=== PATIENT | male | born 1975 | race Caucasian/White ===

== ENCOUNTER 2018-03-29 15:50 | Emergency (ER) | payer OTHER ==
[2018-03-29 16:00] VITALS: BP 137/83
[2018-03-29] MEDS ORDERED: Sodium Chloride 0.9% 10 ML Syringe FLUSH PRN (16:24)
--- NOTE | 2018-03-29 16:57 | CT ---
Head CT Technique: Multiple axial sections through the brain were obtained. Intravenous contrast was not utilized. Comparison: No prior intracranial imaging. Findings: Ventricles along with basal cisterns and sulci over the convexities are within normal limits for the patient's age. No abnormal parenchymal densities are seen. No evidence of intracranial hemorrhage. No midline shift or mass effect is seen. Bone window settings were reviewed which shows minimal area of mucosal thickening within the left ethmoid sinus which is incidental. Other visualized sinuses are clear. No acute calvarial abnormality is appreciated. Impression: 1. Minimal sinus finding which is incidental. No acute intracranial abnormality is identified on noncontrast head CT exam. Diagnostic code #2 4
--- NOTE | 2018-03-29 17:26 | EDM.PDOC ---
ED HPI GENERAL MEDICAL PROBLEM - General Chief Complaint: General Stated Complaint: [facility] Time Seen by Provider: 03/29/18 16:04 Source of Information: Reports: Patient, EMS History Limitations: Reports: No Limitations - History of Present Illness INITIAL COMMENTS - FREE TEXT/NARRATIVE: The patient presents by [facility] for shortness of breath, diaphoresis , tingling in both arms and a headache. 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 He was at a well sight near [facility]. He was doing some maintenance and got sweaty more then normal and was winded. He started driving to another well sight and started having tingling in his arms. He also felt lightheaded at that time. He had to drive awhile to get cell service and then he called his boss and 911. [facility] brought him in. He feels much better now. He just has some tingling in both hands. He has a chronic headache. He denies having any chest pain, nausea, vomiting or abdominal pain. He has no history of PE or DVT. He has no edema or pain in his legs. Onset: Gradual Duration: Hour(s): Severity: Moderate Improves with: Reports: None Worsens with: Reports: None Associated Symptoms: Reports: Headaches, Shortness of Breath. Denies: Chest Pain, Cough, Fever/Chills, Nausea/Vomiting - Related Data Allergies Allergy/AdvReac Type Severity Reaction Status Date / Time No Known Allergies Allergy Verified 03/29/18 15:59 Home Meds: Home Meds Multivitamin [Multivitamins] 1 tab PO DAILY 03/29/18 [History] Omeprazole 20 mg PO DAILY 03/29/18 [History] Past Medical History Gastrointestinal History: Reports: GERD, Other (See Below) Other Gastrointestinal History: blood in stool - Past Surgical History GI Surgical History: Reports: Colonoscopy Male Surgical History: Reports: Vasectomy, Other (See Below) Other Male Surgeries/Procedures: vasectomy reversal Social & Family History - Tobacco Use Smoking Status *Q: Never Smoker Second Hand Smoke Exposure: No - Caffeine Use Caffeine Use: Reports: Soda - Recreational Drug Use Recreational Drug Use: No ED ROS GENERAL - Review of Systems Review Of Systems: See Below Constitutional: Reports: No Symptoms HEENT: Reports: No Symptoms Respiratory: Reports: Shortness of Breath. Denies: Cough Cardiovascular: Reports: Lightheadedness. Denies: Chest Pain Endocrine: Reports: No Symptoms GI/Abdominal: Reports: No Symptoms : Reports: No Symptoms Musculoskeletal: Reports: No Symptoms Skin: Reports: No Symptoms Neurological: Reports: Headache ED EXAM, GENERAL - Physical Exam Exam: See Below Exam Limited By: No Limitations General Appearance: Alert, No Apparent Distress Ears: Normal External Exam Nose: Normal Inspection Head: Atraumatic, Normocephalic Neck: Normal Inspection Respiratory/Chest: No Respiratory Distress, Lungs Clear, Normal Breath Sounds Cardiovascular: Regular Rate, Rhythm, No Edema, No Murmur GI/Abdominal: Soft, Non-Tender, No Organomegaly, No Mass Back Exam: Normal Inspection Extremities: Normal Inspection EKG INTERPRETATION EKG Date: 03/29/18 Time: 16:33 Rhythm: NSR Rate (Beats/Min): 83 [place]: Normal P-Wave: Present QRS: Normal ST-T: Normal QT: Normal Course - Vital Signs Last Recorded V/S: Last Vital Signs Temp 98.3 F 03/29/18 15:53 Pulse 86 03/29/18 15:53 Resp 16 03/29/18 15:53 BP 137/83 03/29/18 15:53 Pulse Ox 99 03/29/18 15:53 - Orders/Labs/Meds Orders: Active Orders 24 hr Category Date Time Status Cardiac Monitoring [RC] . DIRECTED Care 03/29/18 16:24 Active EKG Documentation Completion [RC] STAT Care 03/29/18 16:25 Active Peripheral IV Care [RC] . DIRECTED Care 03/29/18 16:25 Active Sodium Chloride 0.9% [Saline Flush] Med 03/29/18 16:24 Active 10 ml FLUSH ASDIRECTED PRN Peripheral IV Insertion Adult [OM.PC] Stat Oth 03/29/18 16:24 Ordered Medication Orders Sodium Chloride (Saline Flush) 10 ml FLUSH ASDIRECTED PRN PRN Reason: Keep Vein Open Last Admin: 03/29/18 16:30 Dose: 10 ml Labs: Laboratory Tests 03/29/18 03/29/18 03/29/18 Range/Units 17:00 17:00 17:00 WBC 6.58 (4.23-9.07) K/mm3 RBC 4.58 L (4.63-6.08) M/mm3 Hgb 14.8 (13.7-17.5) gm/L Hct 40.9 (40.1-51.0) % MCV 89.3 (79.0-92.2) fl MCH 32.3 H (25.7-32.2) pg MCHC 36.2 H (32.2-35.5) g/dl RDW Std Deviation 43.5 (35.1-43.9) fL Plt Count 233 (163-337) K/mm3 MPV 9.5 (9.4-12.3) fl Neut % (Auto) 67.6 (34.0-67.9) % Lymph % (Auto) 23.6 (21.8-53.1) % [place] % (Auto) 8.2 (5.3-12.2) % Eos % (Auto) 0.2 L (0.8-7.0) Baso % (Auto) 0.2 (0.1-1.2) % Neut # (Auto) 4.46 (1.78-5.38) K/mm3 Lymph # (Auto) 1.55 (1.32-3.57) K/mm3 [place] # (Auto) 0.54 (0.30-0.82) K/mm3 Eos # (Auto) 0.01 L (0.04-0.54) K/mm3 Baso # (Auto) 0.01 (0.01-0.08) K/mm3 D-Dimer, Quantitative < 0.19 L (0.19-0.50) mg/L Sodium 140 (136-145) mEq/L Potassium 3.1 L (3.5-5.1) mEq/L Chloride 105 (98-107) mEq/L Carbon Dioxide 23 (21-32) mEq/L Anion Gap 15.1 H (5-15) BUN 18 (7-18) mg/dL Creatinine 1.0 (0.7-1.3) mg/dL Est Cr Clr Drug Dosing 106.53 mL/min Estimated GFR (MDRD) > 60 (>60) mL/min BUN/Creatinine Ratio 18.0 (14-18) Glucose 90 (74-106) mg/dL Calcium 8.5 (8.5-10.1) mg/dL Total Bilirubin 0.7 (0.2-1.0) mg/dL AST 29 (15-37) U/L ALT 84 H (16-63) U/L Alkaline Phosphatase 73 (46-116) U/L Troponin I < 0.017 (0.00-0.056) ng/mL Total Protein 7.2 (6.4-8.2) g/dl Albumin 4.1 (3.4-5.0) g/dl Globulin 3.1 gm/dL Albumin/Globulin Ratio 1.3 (1-2) Meds: Medications Generic Name Dose Route Start Last Admin Trade Name Freq PRN Reason Stop Dose Admin Sodium Chloride 10 ml 03/29/18 16:24 03/29/18 16:30 Saline Flush FLUSH 10 ml ASDIRECTED PRN Administration Keep Vein Open - Re-Assessments/Exams Free Text/Narrative Re-Assessment/Exam: 03/29/18 17:29 I ordered an EKG, CT of his head and labs. 03/29/18 17:[address] shows minimal sinus finding which is incidental. No acute intracranial abnormality is identified on noncontrast head CT exam. His EKG shows a NSR with some LVH. No acute changes noted. His CBC looks good. His D-dimer is negative. His troponin is negative. His K is low at 3.1. He feels better. He says he has chronic headaches from his neck pain. I will have him follow up with Dr Bob at [facility] and talk about getting an MRI. I would also like to have him wear a holter monitor for 48 hours. Departure - Departure Time of Disposition: 18:05 Disposition: Home, Self-Care 01 Condition: Good Clinical Impression: Lightheaded, Shortness of breath, Tingling of left upper extremity, Tingling of right upper extremity - Discharge Information *PRESCRIPTION DRUG MONITORING PROGRAM REVIEWED*: Not Applicable *COPY OF PRESCRIPTION DRUG MONITORING REPORT IN PATIENT BRITTNEY: Not Applicable Referrals: Walter Wren MD [Primary Care Provider] - Forms: ED Department Discharge Additional Instructions: Wear the holter monitor for 2 days. Follow up with your doctor within a week. Please return if you are worse. - My Orders Last 24 Hours: My Active Orders 03/29/18 16:24 Cardiac Monitoring [RC] . DIRECTED Sodium Chloride 0.9% [Saline Flush] 10 ml FLUSH ASDIRECTED PRN Peripheral IV Insertion Adult [OM.PC] Stat 03/29/18 16:25 EKG Documentation Completion [RC] STAT Peripheral IV Care [RC] . DIRECTED - Assessment/Plan Last 24 Hours: My Active Orders 03/29/18 16:24 Cardiac Monitoring [RC] . DIRECTED Sodium Chloride 0.9% [Saline Flush] 10 ml FLUSH ASDIRECTED PRN Peripheral IV Insertion Adult [OM.PC] Stat 03/29/18 16:25 EKG Documentation Completion [RC] STAT Peripheral IV Care [RC] . DIRECTED
== END 2018-03-29 18:17 | disposition home or self-care (01) ==
LOC: JD.ED 15:50
DX: R06.02 Shortness of breath (principal); R42 Dizziness and giddiness; R20.2 Paresthesia of skin; K21.9 Gastro-esophageal reflux disease without esophagitis; Z79.899 Other long term (current) drug therapy
CPT/HCPCS: 36415; 70450; 70450-26; 80053; 84484; 85025; 85379; 93005; 93010; 93225; 93226; 99284; 99285-25

== ENCOUNTER 2022-02-01 07:41 | Day surgery (SDC) | payer BC ==
[~2022-02-01 07:41] MED LIST: Lactated Ringers 1,000 ML IV SCH; Lidocaine 1%/Sod Bicarbonate in NS 8.4% 1 ML Syringe IDERM PRN; Sodium Chloride 0.9% 10 ML Syringe FLUSH PRN; Sodium Chloride 0.9% 10 ML Syringe FLUSH SCH
[2022-02-01] MEDS ORDERED: fentaNYL 100 MCG/2 ML SDV ONE (08:26)
[2022-02-01] MEDS ORDERED: Propofol 200 MG/20 ML SDV ONE ×2 (08:29→08:54)
[2022-02-01 12:39] VITALS: BP 126/91; PULSE 56
== END 2022-02-01 10:50 | disposition home or self-care (01) ==
LOC: JD.SDS 07:41
PROVIDERS: ATTEND Surgery
DX: K31.7 Polyp of stomach and duodenum (principal); K21.9 Gastro-esophageal reflux disease without esophagitis; K44.9 Diaphragmatic hernia without obstruction or gangrene; K31.89 Other diseases of stomach and duodenum; K57.30 Diverticulosis of large intestine without perforation or abscess without bleeding; F41.9 Anxiety disorder, unspecified; N40.0 Benign prostatic hyperplasia without lower urinary tract symptoms; G43.909 Migraine, unspecified, not intractable, without status migrainosus; F32.A Depression, unspecified; Z79.899 Other long term (current) drug therapy
CPT/HCPCS: 43239; J2704; J3010; J7120; 00731